=== PATIENT | male | born 1965 | race Caucasian/White ===

== ENCOUNTER 2020-08-23 10:47 | Emergency (ER) | payer OTHER ==
[~2020-08-23] VITALS: Ht 182.9 cm; Wt 88.6 kg
--- NOTE | 2020-08-23 11:26 | RAD ---
XR CHEST 1V History: Reason: sob / Spl. Instructions: / History: Comparison: None. Findings: Ill-defined bibasilar opacities. No pleural effusion. No pneumothorax. Normal heart size. Impression: 1. Ill-defined bibasilar opacities, may represent atelectasis or developing infiltrates including vi ral pneumonia. Electronically signed by: Yoandy Faith DO (08/23/2020 11:24 AM) [id number]
[2020-08-23] MEDS ORDERED: DEXAMETHASONE SOD PHOS 10 MG/ML VIAL. IV ONE (11:30)
[2020-08-23] MEDS ORDERED: guaiFENesin/CODEINE 100mg/10mg 5 ML LIQUID PO ONE (11:30)
[2020-08-23 11:31] LABS: BASO % 1 % (0-3); EOS % 0 % (0-3); HEMOGLOBIN 14.6 g/dL (13.0-17.5); LYMPH # 1.2 x10^3/uL (1.0-4.8); LYMPH % 25 % (24-48); MEAN CORPUSCULAR HEMOGLOBIN 29 pg (25-35); MEAN CORPUSCULAR HGB CONC 33 g/dL (31-37); MEAN CORPUSCULAR VOLUME 87 fL (79-100); MONO # 0.7 x10^3/uL (0.0-1.1); MONO % 15 % (0-9); NEUT # 2.7 x10^3uL (1.8-7.7); NEUT % 59 % (31-73); PLATELET COUNT 171 x10^3/uL (140-400); RED BLOOD COUNT 5.03 x10^6/uL (4.30-5.70); RED CELL DISTRIBUTION WIDTH 15.2 % (11.5-14.5); WHITE BLOOD COUNT 4.6 x10^3/uL (4.0-11.0)
[2020-08-23 11:37] LABS: CALCIUM 8.7 mg/dL (8.5-10.1); CREATININE 1.3 mg/dL (0.7-1.3); GFR 56.9; POTASSIUM 4.1 mmol/L (3.5-5.1)
[2020-08-23 11:50] LABS: ALBUMIN 3.6 g/dL (3.4-5.0); TOTAL BILIRUBIN 0.4 mg/dL (0.2-1.0); TOTAL PROTEIN 7.3 g/dL (6.4-8.2)
--- NOTE | 2020-08-23 12:06 | PHYS DOC ---
Past History Past Medical History: No Pertinent History Past Surgical History: Hip Replacement, Other Additional Past Surgical Histo: cardiac ablasion Alcohol Use: Rarely Adult General Chief Complaint Chief Complaint: SHORTNESS OF BREATH HPI HPI Patient is a 55-year-old male with known COVID-19 who presents to the emergency room complaining of severe body aches, severe cough, intermittent shortness of breath. Shortness of breath comes on when he is up moving around. He was diagnosed on Wednesday with Covid and first day of symptoms was Wednesday. He is an otherwise healthy male. He states his entire body aches and he believes it is due to coughing. He states that if he sits still he is cough. Anytime he gets up and moves around he has a severe cough. Pain in his chest feels like an ache. He has been taking Mucinex at home with significant relief. The Mucomyst 6 does not help with his cough. Review of Systems Review of Systems Complete ROS is negative unless otherwise documented in HPI Current Medications Current Medications Current Medications Medications (Trade) Dose Ordered Sig/Guillermo Start Time Stop Time Status Last Admin Dose Admin Dexamethasone Sodium Phosphate (Decadron) 10 mg 1X ONCE 08/23/20 11:30 08/23/20 11:34 DC 08/23/20 11:38 10 MG Guaifenesin/ Codeine Phosphate (Robitussin Ac) 5 ml 1X ONCE 08/23/20 11:30 08/23/20 11:34 DC 08/23/20 11:38 5 ML Iohexol (Omnipaque 350 Mg/ml) 100 ml 1X ONCE 08/23/20 12:15 08/23/20 12:16 UNV Allergies Allergies Allergies Coded Allergies Type Severity Reaction Last Updated Verified No Known Drug Allergies 08/23/20 No Physical Exam Physical Exam General: Awake, alert, NAD. Well Nourished, well hydrated. Cooperative HEENT: Atraumatic, EOMI, PERRL, airway patent, moist oral mucosa Neck: Supple, trachea midline Respiratory: CTA bilaterally, normal effort, decreased breath sounds with minimal crackles CV: Tachycardic, no murmur, cap refill <2 GI: Soft, nondistended, nontender, no masses MSK: No obvious deformities Skin: Warm, dry, intact Neuro: A&O x3, speech NL, sensory and motor grossly intact, no focal deficits Psych: Normal affect, normal mood, not suicidal or homicidal Current Patient Data Vital Signs Vital Signs Date Time Temp Pulse Resp B/P (MAP) Pulse Ox O2 Delivery O2 Flow Rate FiO2 08/23/20 11:40 98.8 78 16 129/75 (93) 99 08/23/20 11:01 Room Air Lab Results Laboratory Tests Test 08/23/20 11:10 White Blood Count 4.6 x10^3/uL (4.0-11.0) Red Blood Count 5.03 x10^6/uL (4.30-5.70) Hemoglobin 14.6 g/dL (13.0-17.5) Hematocrit 44.0 % (39.0-53.0) Mean Corpuscular Volume 87 fL (79-100) Mean Corpuscular Hemoglobin 29 pg (25-35) Mean Corpuscular Hemoglobin Concent 33 g/dL (31-37) Red Cell Distribution Width 15.2 % (11.5-14.5) H Platelet Count 171 x10^3/uL (140-400) Neutrophils (%) (Auto) 59 % (31-73) Lymphocytes (%) (Auto) 25 % (24-48) Monocytes (%) (Auto) 15 % (0-9) H Eosinophils (%) (Auto) 0 % (0-3) Basophils (%) (Auto) 1 % (0-3) Neutrophils # (Auto) 2.7 x10^3uL (1.8-7.7) Lymphocytes # (Auto) 1.2 x10^3/uL (1.0-4.8) Monocytes # (Auto) 0.7 x10^3/uL (0.0-1.1) Eosinophils # (Auto) 0.0 x10^3/uL (0.0-0.7) Basophils # (Auto) 0.0 x10^3/uL (0.0-0.2) D-Dimer (Sujatha) 0.68 mg/L (0.00-0.50) H Sodium Level 134 mmol/L (136-145) L Potassium Level 4.1 mmol/L (3.5-5.1) Chloride Level 99 mmol/L (98-107) Carbon Dioxide Level 24 mmol/L (21-32) Anion Gap 11 (6-14) Blood Urea Nitrogen 15 mg/dL (8-26) Creatinine 1.3 mg/dL (0.7-1.3) Estimated GFR (Cockcroft-Gault) 56.9 BUN/Creatinine Ratio 12 (6-20) Glucose Level 98 mg/dL (70-99) Calcium Level 8.7 mg/dL (8.5-10.1) Total Bilirubin 0.4 mg/dL (0.2-1.0) Aspartate Amino Transferase (AST) 44 U/L (15-37) H Alanine Aminotransferase (ALT) 49 U/L (16-63) Alkaline Phosphatase 53 U/L (46-116) Lactate Dehydrogenase 185 U/L (85-227) Creatine Kinase 117 U/L (39-308) Troponin I Quantitative < 0.017 ng/mL (0-0.055) C-Reactive Protein 10.0 mg/L (0-3.3) H HP-Szn-L-Type Natriuretic Peptide 19 pg/mL (0-124) Total Protein 7.3 g/dL (6.4-8.2) Albumin 3.6 g/dL (3.4-5.0) Albumin/Globulin Ratio 1.0 (1.0-1.7) EKG EKG [] Radiology/Procedures Radiology/Procedures [] Heart Score Risk Factors: Risk Factors: DM, Current or recent (<one month) smoker, HTN, HLP, family history of CAD, obesity. Risk Scores: Risk Factors: DM, Current or recent (<one month) smoker, HTN, HLP, family history of CAD, obesity. Course & Med Decision Making Course & Med Decision Making Pertinent Labs and Imaging studies reviewed. (See chart for details) Patient is a 55-year-old male who presents to the emergency room with cough, shortness of breath, body aches. At this time there is concern for the novel coronavirus 19. Risk stratifying work-up was ordered including chest x-ray, d- dimer, CPK, CRP, LDH, troponin, ferritin, CBC, CMP. Due to concern of COVID-19 I have discussed the importance of quarantining with the patient. I have discussed with them that they should avoid grocery stores, gas stations, pharmacies, work, friends/family's homes. I discussed with him that it is important that they do not expose themselves to anyone else for the next 14 days. Chest x-ray does show infiltrates at this time and patient will be treated with empiric antibiotics. D-dimer was elevated and CT angio of the chest was ordered to rule out a pulmonary embolism. Patient will be treated with steroids. I have discussed with the patient the course of the illness and we have discussed strict return precautions. At this time patient does not need admission as they are stable, however it is possible that they may get worse over the next few days and we have discussed the importance of coming back if they develop severe shortness of breath or any other symptoms that they are concerned about. Patient's test results and vitals while in the ED were fully reviewed and discussed with the patient. Patient is stable and at this time does not need admission to the hospital. We have discussed strict return precautions and the importance of following up with their Primary Care Physician. Patient stated understanding and was given an opportunity to ask any questions. Dragon Disclaimer Dragon Disclaimer This electronic medical record was generated, in whole or in part, using a voice recognition dictation system. Departure Departure: Impression: Primary Impression: COVID-19 Additional Impression: Cough Referrals: DEVYN VIVAR (PCP) Problem Qualifiers SIXTO CRESPO MD Aug 23, 2020 12:06
[2020-08-23] MEDS ORDERED: IOHEXOL 350 MG/ML 100 ML VIAL. IV ONE (12:15)
[2020-08-23] MEDS ORDERED: CONTRAST GIVEN. MC PRN (12:15)
[2020-08-23 13:10] VITALS: BP 117/77
--- NOTE | 2020-08-23 13:26 | RAD ---
Exam performed: CT pulmonary angiogram of the chest with contrast. Date: 08/23/2020. Comparison:None available Indication: Elevated d-dimer, shortness of breath Technique: Contiguous helical acquisitions are obtained through the chest during intravenous administ ration of 75 cc of Isovue-[id number]. [Sagittal and coronal reformatted images and ] MIP images were obta ined and reviewed Findings: Patchy infiltrates are seen in both lung upper and lower lobes. There is no pleural effusion or pneum othorax The structures at the thoracic inlet including both lobes of the thyroid gland appear normal. Pulmonary arterial opacification is adequate to evaluate for pulmonary embolus. There is no evidence for pulmonary embolism. The heart is normal in size. No pericardial effusion is seen. No mediastinal or hilar lymphadenopathy is seen. Upper abdominal structures appear unremarkable. Osseous structures appear intact. Impression: 1. Patchy infiltrates both upper and lower lobes. 2. No convincing evidence of pulmonary embolism noted. PQRS Compliance Statement: One or more of the following individualized dose reduction techniques were utilized for this examinat ion: 1. Automated exposure control 2. Adjustment of the mA and/or kV according to patient size 3. Use of iterative reconstruction technique Electronically signed by: Ana Laird MD (08/23/2020 1:24 PM) [id number]
[2020-08-23] MEDS ORDERED: AZIT250T PO (13:51)
[2020-08-23] MEDS ORDERED: PRED50TA PO (13:51)
[2020-08-23] MEDS ORDERED: GUAI118L13 PO (13:51)
== END 2020-08-23 14:10 | disposition home or self-care (01) ==
LOC: EDBD 10:47 → ER 10:47
DX: U07.1 COVID-19 (principal); R07.89 Other chest pain
CPT/HCPCS: 36415; 71045; 71275; 80053; 82550; 83615; 83880; 84484; 85025; 85379; 86140; 96374; 99285; J1100; Q9967